=== PATIENT | female | born 2005 | race Caucasian/White ===

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

== ENCOUNTER 2024-12-18 20:42 | Emergency (ER) | payer BC ==
[~2024-12-18] VITALS: Ht 170.2 cm; Wt 70.3 kg
[2024-12-18] MEDS ORDERED: HYDROCODONE/APAP 5/325MG TABLET ONE (21:46)
[2024-12-18] MEDS: HYDROCODONE/APAP 5/325MG TABLET PO ONE (21:49)
[2024-12-18] MEDS ORDERED: IBUP-1490 PO (22:02)
[2024-12-18 22:15] VITALS: BP 104/56; TEMP 98.4; O2SAT 98
== END 2024-12-18 22:15 | disposition home or self-care (01) ==
LOC: ER 21:06
DX: S69.82XA Other specified injuries of left wrist, hand and finger(s), initial encounter (principal); W22.8XXA Striking against or struck by other objects, initial encounter; Y93.89 Activity, other specified; Y92.89 Other specified places as the place of occurrence of the external cause; Y99.8 Other external cause status
CPT/HCPCS: 73110